=== PATIENT | male | born 1960 | race Caucasian/White ===

== ENCOUNTER 2024-05-01 04:55 | Day surgery (SDC) | payer OTHER, MEDICARE ==
[2024-04-30 12:11] VITALS: BMI 25.0
[2024-05-01 12:57] VITALS: TEMP 97.8
[2024-05-01 13:00] VITALS: BP 111/66; PULSE 79; RESP 16
== END 2024-05-01 12:50 | disposition home or self-care (01) ==
LOC: JASU-ENDO 04:55
PROVIDERS: ATTEND Internal Medicine Gastroenterology
PROC: 0DJD8ZZ Inspection of Lower Intestinal Tract, Via Natural or Artificial Opening Endoscopic (ICD-10-PCS; principal; 2024-05-01 10:00)
DX: Z12.11 Encounter for screening for malignant neoplasm of colon (principal); K64.8 Other hemorrhoids